=== PATIENT | female | born 1940 | race Caucasian/White ===

== ENCOUNTER → 2019-09-21 | Outpatient (CLI) | payer MEDICARE, OTHER ==
[~2019-09-21] MED LIST: ASPI81CH PO; CLON.1 PO; FAMO20 PO; Prinivil5 MG PO; SIMV40 PO
== END | disposition home or self-care (01) ==
LOC: LAB EV 08:50
DX: K21.9 Gastro-esophageal reflux disease without esophagitis (principal)
CPT/HCPCS: 87338

== ENCOUNTER 2019-10-15 07:46 | Day surgery (SDC) | payer MEDICARE, OTHER ==
[~2019-10-15] VITALS: Ht 167.6 cm; Wt 83.4 kg
[2019-10-15] MEDS ORDERED: FISH OIL + D31 EACH (08:13)
== END 2019-10-15 09:44 | disposition home or self-care (01) ==
LOC: ORSCSDS 07:46
DX: K21.0 Gastro-esophageal reflux disease with esophagitis (principal); R13.14 Dysphagia, pharyngoesophageal phase; K44.9 Diaphragmatic hernia without obstruction or gangrene; E66.9 Obesity, unspecified; Z68.30 Body mass index [BMI] 30.0-30.9, adult; Z79.82 Long term (current) use of aspirin; Z79.899 Other long term (current) drug therapy
CPT/HCPCS: 88305; J2405; J2704; J7120

== ENCOUNTER → 2020-04-19 | Outpatient (CLI) | payer MEDICARE, OTHER ==
[~2020-04-19] MED LIST changes: +FISH OIL + D31 EACH
== END | disposition home or self-care (01) ==
LOC: PLD 11:29 → LAB SHORT 11:29
DX: L72.0 Epidermal cyst (principal); D48.5 Neoplasm of uncertain behavior of skin
CPT/HCPCS: 88305

== ENCOUNTER 2020-09-07 08:04 | Day surgery (SDC) | payer MEDICARE, OTHER ==
[~2020-09-07] VITALS: Ht 167.6 cm; Wt 78.3 kg
[~2020-09-07 08:04] MED LIST changes: +FAMO20
== END 2020-09-07 10:12 | disposition home or self-care (01) ==
LOC: ORSCSDS 08:04
PROVIDERS: Ophthalmology
PROC: 08RK3JZ Replacement of Left Lens with Synthetic Substitute, Percutaneous Approach (ICD-10-PCS; principal; 2020-09-07 09:15)
DX: H25.12 Age-related nuclear cataract, left eye (principal); I10 Essential (primary) hypertension; Z79.899 Other long term (current) drug therapy; Z79.82 Long term (current) use of aspirin
CPT/HCPCS: J2001; J2250; J3010; J3301; J7040; V2632

== ENCOUNTER → 2020-12-16 | Outpatient (CLI) | payer MEDICARE, OTHER ==
[2020-12-17 09:28] LABS: Stool Occult Bld Immuno 1 Negative (NEGATIVE); Stool Occult Bld Immuno 2 Negative (NEGATIVE); Stool Occult Bld Immuno 3 Negative (NEGATIVE)
== END ==
LOC: LAB SHORT 07:00
PROVIDERS: Physician Assistant
DX: D64.9 Anemia, unspecified (principal)
CPT/HCPCS: 82274